=== PATIENT | female | born 1995 | race Caucasian/White ===

== ENCOUNTER 2018-04-12 16:39 | Outpatient (CLI) | payer MEDICAID ==
[2018-04-12 17:29] LABS: ADD UMIC YES; UR ASCORBIC ACID NEGATIVE (NEGATIVE); UR BILIRUBIN (Dip) NEGATIVE (NEGATIVE); UR BLOOD (Dip) NEGATIVE (NEGATIVE); UR CLARITY SLIGHTLY CLOUDY (CLEAR); UR COLOR YELLOW (YELLOW); UR GLUCOSE (Dip) NEGATIVE (NEGATIVE); UR KETONES (Dip) TRACE mg/dL (NEGATIVE); UR LEUKOCYTE ESTERASE (Dip) 2+ Leu/ul (NEGATIVE); UR MUCUS FEW /HPF (NONE SEEN); UR NITRITE (Dip) NEGATIVE (NEGATIVE); UR RBC 3 /HPF (0-5); UR SPECIFIC GRAVITY (Dip) 1.031 (1.003-1.030); UR SQUAMOUS EPITHELIAL CELL FEW /HPF (FEW); UR TOTAL PROTEIN (Dip) 1+ mg/dl (NEGATIVE); UR UROBILINOGEN (Dip) NEGATIVE (NEGATIVE); UR WBC 6 /HPF (0-5)
== END 2018-04-12 18:20 | disposition home or self-care (01) ==
LOC: OBT 16:39 → L-D 16:39 → OBT 18:20
DX: O26.892 Other specified pregnancy related conditions, second trimester (principal); Z3A.27 27 weeks gestation of pregnancy; R10.2 Pelvic and perineal pain
CPT/HCPCS: 76815; 76817; 76818; 81001

== ENCOUNTER 2018-06-15 23:08 | Outpatient (CLI) | payer OTHER, MEDICAID | END 2018-06-16 01:39 | disposition home or self-care (01) | LOC: OBT 23:08 → L-D 23:13 | DX: O26.893 Other specified pregnancy related conditions, third trimester (principal); R06.02 Shortness of breath; R07.9 Chest pain, unspecified; O62.9 Abnormality of forces of labor, unspecified; Z3A.36 36 weeks gestation of pregnancy | CPT/HCPCS: 76818 ==

== ENCOUNTER 2018-06-16 01:47 | Emergency (ER) | payer OTHER | END 2018-06-16 05:13 | disposition home or self-care (01) | LOC: FTE 01:47 | DX: O99.613 Diseases of the digestive system complicating pregnancy, third trimester (principal); K21.9 Gastro-esophageal reflux disease without esophagitis; Z3A.36 36 weeks gestation of pregnancy | CPT/HCPCS: 93005; 99283-25 ==

== ENCOUNTER 2018-07-05 10:23 | Outpatient (CLI) | payer OTHER | END 2018-07-05 13:05 | disposition home or self-care (01) | LOC: OBT 10:23 → L-D 10:23 → OBT 13:05 | DX: O28.9 Unspecified abnormal findings on antenatal screening of mother (principal); O99.213 Obesity complicating pregnancy, third trimester; E66.01 Morbid (severe) obesity due to excess calories; Z3A.39 39 weeks gestation of pregnancy | CPT/HCPCS: 76815; 76818 ==

== ENCOUNTER 2018-07-07 10:51 | Inpatient (IN) | payer OTHER ==
[2018-07-07 12:27] LABS: ADD UMIC YES; UR ASCORBIC ACID 20 mg/dL (NEGATIVE); UR BACTERIA FEW /HPF (NONE SEEN); UR BILIRUBIN (Dip) NEGATIVE (NEGATIVE); UR BLOOD (Dip) NEGATIVE (NEGATIVE); UR CLARITY SLIGHTLY CLOUDY (CLEAR); UR COLOR YELLOW (YELLOW); UR GLUCOSE (Dip) NEGATIVE (NEGATIVE); UR KETONES (Dip) NEGATIVE (NEGATIVE); UR LEUKOCYTE ESTERASE (Dip) 3+ Leu/ul (NEGATIVE); UR NITRITE (Dip) NEGATIVE (NEGATIVE); UR RBC 1 /HPF (0-5); UR SPECIFIC GRAVITY (Dip) 1.017 (1.003-1.030); UR SQUAMOUS EPITHELIAL CELL FEW /HPF (FEW); UR TOTAL PROTEIN (Dip) NEGATIVE (NEGATIVE); UR UROBILINOGEN (Dip) NEGATIVE (NEGATIVE); UR WBC 6 /HPF (0-5)
[2018-07-07 12:36] LABS: ADD MAN DIFF? NO
[2018-07-07 12:38] LABS: WHITE BLOOD COUNT 7.8 10^3/ul (4.8-10.8)
[2018-07-07 12:38] LABS: BASOPHILS % 0.3 % (0.0-2.0); EOSINOPHILS # 0.1 10^3/ul (0.0-0.5); EOSINOPHILS % 1.8 % (0.0-7.0); HEMATOCRIT 34.6 % (37.0-47.0); HEMOGLOBIN 11.2 g/dl (12.0-16.0); LYMPHOCYTES # 2.5 10^3/ul (0.8-2.9); LYMPHOCYTES % 31.6 % (15.0-51.0); MEAN CORPUSCULAR HEMOGLOBIN 27.6 pg (29.0-33.0); MEAN CORPUSCULAR HGB CONC 32.4 g/dl (32.0-37.0); MEAN CORPUSCULAR VOLUME 85.2 fl (82.0-101.0); MEAN PLATELET VOLUME 10.1 fl (7.4-10.4); MONOCYTE # 0.5 10^3/ul (0.3-0.9); MONOCYTES % 6.6 % (0.0-11.0); NEUTROPHIL # 4.6 10^3/ul (1.6-7.5); NEUTROPHILS % 59.1 % (39.0-77.0); PLATELET COUNT 215 10^3/UL (140-415); RED BLOOD COUNT 4.06 10^6/ul (4.20-5.40); RED CELL DISTRIBUTION WIDTH 14.9 % (11.5-14.5)
[2018-07-07 12:58] LABS: ALANINE AMINOTRANSFERASE 17 IU/L (13-69); ALBUMIN 3.2 g/dl (3.3-4.9); ALBUMIN/GLOBULIN RATIO 1.03; ALKALINE PHOSPHATASE 163 IU/L (42-121); ANION GAP 7 (5-13); ASPARTATE AMINO TRANSFERASE 23 IU/L (15-46); BLOOD UREA NITROGEN 8 mg/dl (7-20); CALCIUM 8.9 mg/dl (8.4-10.2); CARBON DIOXIDE 21 mmol/L (21-31); CHLORIDE 110 mmol/L (97-110); CREATININE 0.48 mg/dl (0.44-1.00); Estimated GFR > 60 mL/min (>60); GLUCOSE 85 mg/dl (70-220); SODIUM 138 mmol/L (135-144); TOTAL PROTEIN 6.3 g/dl (6.1-8.1); URIC ACID 4.8 mg/dl (3.1-7.9)
[2018-07-07 13:03] LABS: INR 0.98; PARTIAL THROMBOPLASTIN TIME 24.5 Sec (23.0-35.0); PROTIME 13.1 Sec (11.9-14.9)
[2018-07-07] MEDS ORDERED: METHYLERGONOVINE 0.2 MG INJ IM (14:00)
[2018-07-07] MEDS ORDERED: MISOPROSTOL 200 MCG TAB PR (14:00)
[2018-07-07] MEDS ORDERED: BUTORPHANOL 2 MG INJ IV (14:00)
[2018-07-07] MEDS ORDERED: OXYTOCIN 30 UNITS/LR 500 ML IV ×2 (14:00)
[2018-07-07] MEDS ORDERED: CARBOPROST 250 MCG INJ IM (14:00)
[2018-07-07] MEDS: LACTATED RINGER'S 1,000 ML IV ×2 (16:36→20:42)
[2018-07-07] MEDS: MISOPROSTOL 50 MCG CAPSULE PO (17:46)
[2018-07-07 20:43] LABS: RAPID PLASMA REAGIN NONREACTIVE (NR)
[2018-07-07 23:02] LABS: HEPATITIS B SURFACE ANTIGEN NEGATIVE (NEGATIVE)
[2018-07-08] MEDS: LACTATED RINGER'S 1,000 ML IV ×4 (04:49→23:09)
[2018-07-08] MEDS: OXYTOCIN 30 UNITS/LR 500 ML IV (06:23)
[2018-07-09] MEDS: LACTATED RINGER'S 1,000 ML IV ×5 (04:16→22:40)
[2018-07-09] MEDS ORDERED: DIPHENHYDRAMINE 50 MG INJ IV (13:00)
[2018-07-09] MEDS ORDERED: NALOXONE (0.4 MG/ML) INJ IV (13:00)
[2018-07-09] MEDS ORDERED: HYDROmorphONE 0.5 MG/0.5 ML SYG IV ×2 (13:00)
[2018-07-09] MEDS ORDERED: KETOROLAC 30 MG INJ IV (13:00)
[2018-07-09] MEDS ORDERED: FENTAnyl 2MCG/ML-ROPIV 0.2% 100 ML BAG EPI (13:00)
[2018-07-09] MEDS ORDERED: LIDOCAINE 1.5%/EPI MPF (SDV) 30 ML VIAL (13:17)
[2018-07-09] MEDS: BUTORPHANOL 2 MG INJ IV (15:50)
[2018-07-09] MEDS: ONDANSETRON 4 MG INJ IV (21:08)
[2018-07-09] MEDS: AMPICILLIN 2 GM/NS (PMX) 100 ML IV (23:23)
[2018-07-10] MEDS: BUTORPHANOL 2 MG INJ IV (01:42)
[2018-07-10] MEDS: AMPICILLIN 1 GM/NS (PMX) 50 ML IV ×5 (03:25→20:12)
[2018-07-10] MEDS: ONDANSETRON 4 MG INJ IV (05:13)
[2018-07-10] MEDS: LACTATED RINGER'S 1,000 ML IV ×3 (06:05→13:23)
[2018-07-10] MEDS ORDERED: DIPHENHYDRAMINE 50 MG INJ IV (08:00)
[2018-07-10] MEDS ORDERED: ROPIVACAINE 0.2% 100ML BAG EPI (08:00)
[2018-07-10] MEDS ORDERED: NALOXONE (0.4 MG/ML) INJ IV (08:00)
[2018-07-10] MEDS ORDERED: ONDANSETRON 4 MG INJ IV (08:00)
[2018-07-10] MEDS: DEXTROSE 5%-LR 1,000 ML IV (09:31)
[2018-07-10] MEDS: OXYTOCIN 30 UNITS/LR 500 ML IV (10:06)
[2018-07-10] MEDS: FENTAnyl 2MCG/ML-ROPIV 0.2% 100 ML BAG EPI ×2 (15:14→20:13)
[2018-07-11] MEDS: AMPICILLIN 1 GM/NS (PMX) 50 ML IV (00:06)
[2018-07-11] MEDS: MINERAL OIL LIGHT 10 ML VIAL TOP (00:30)
[2018-07-11] MEDS: FENTAnyl 2MCG/ML-ROPIV 0.2% 100 ML BAG EPI (01:59)
[2018-07-11] MEDS: LIDOCAINE 1% (MPF) 30 ML INJ INJ ×2 (03:12→03:18)
[2018-07-11] MEDS: OXYTOCIN 30 UNITS/LR 500 ML IV ×2 (03:18→05:00)
[2018-07-11] MEDS ORDERED: ZOLPIDEM 5 MG TAB PO (05:00)
[2018-07-11] MEDS ORDERED: OXYTOCIN 30 UNITS/LR 500 ML IV (05:00)
[2018-07-11] MEDS ORDERED: CARBOPROST 250 MCG INJ IM (05:00)
[2018-07-11] MEDS ORDERED: METHYLERGONOVINE 0.2 MG INJ IM (05:00)
[2018-07-11] MEDS ORDERED: MISOPROSTOL 200 MCG TAB PR (05:00)
[2018-07-11] MEDS ORDERED: OXYCODONE/ASPIRIN (4.88/325) TAB PO ×2 (05:00)
[2018-07-11] MEDS: IBUPROFEN 600 MG TAB PO ×3 (06:08→18:06)
[2018-07-11] MEDS: BENZOCAINE 20% 56 ML SPRAY TOP (06:09)
[2018-07-11] MEDS: LANOLIN HPA 1 PKT TOP (06:09)
[2018-07-11] MEDS: WITCH HAZEL/GLYCERIN PAD PR (06:09)
[2018-07-11] MEDS: SENNA/DOCUSATE NA (8.6MG/50MG) TAB PO ×2 (09:07→20:40)
[2018-07-12] MEDS: IBUPROFEN 600 MG TAB PO ×5 (00:06→23:35)
[2018-07-12 08:21] LABS: ADD MAN DIFF? NO
[2018-07-12 08:27] LABS: WHITE BLOOD COUNT 12.6 10^3/ul (4.8-10.8)
[2018-07-12 08:27] LABS: BASOPHILS % 0.3 % (0.0-2.0); EOSINOPHILS # 0.3 10^3/ul (0.0-0.5); EOSINOPHILS % 2.4 % (0.0-7.0); HEMATOCRIT 29.8 % (37.0-47.0); HEMOGLOBIN 9.6 g/dl (12.0-16.0); LYMPHOCYTES # 4.2 10^3/ul (0.8-2.9); LYMPHOCYTES % 33.6 % (15.0-51.0); MEAN CORPUSCULAR HGB CONC 32.2 g/dl (32.0-37.0); MEAN CORPUSCULAR VOLUME 86.9 fl (82.0-101.0); MEAN PLATELET VOLUME 10.2 fl (7.4-10.4); MONOCYTE # 0.7 10^3/ul (0.3-0.9); MONOCYTES % 5.3 % (0.0-11.0); NEUTROPHIL # 7.3 10^3/ul (1.6-7.5); NEUTROPHILS % 57.8 % (39.0-77.0); PLATELET COUNT 210 10^3/UL (140-415); RED BLOOD COUNT 3.43 10^6/ul (4.20-5.40); RED CELL DISTRIBUTION WIDTH 15.5 % (11.5-14.5)
[2018-07-12] MEDS: SENNA/DOCUSATE NA (8.6MG/50MG) TAB PO ×2 (08:52→20:50)
[2018-07-13] MEDS: IBUPROFEN 600 MG TAB PO ×2 (05:30→12:00)
[2018-07-13] MEDS: SENNA/DOCUSATE NA (8.6MG/50MG) TAB PO (09:00)
[2018-07-13] MEDS: DIPHTH/TET/ACEL PERTUSS (ADULT) 0.5 ML VIAL IM* (12:08)
== END 2018-07-13 13:15 | disposition home or self-care (01) | DRG 807 ==
LOC: OBT 10:51 → PP1 07-11 05:30 → L-D 10:51 → OBT 13:40 → L-D 13:40
PROC: 10E0XZZ Delivery of Products of Conception, External Approach (ICD-10-PCS; principal; 2018-07-11)
PROC: 0W8NXZZ Division of Female Perineum, External Approach (ICD-10-PCS; 2018-07-11)
DX: O80 Encounter for full-term uncomplicated delivery (principal); Z37.0 Single live birth; Z3A.39 39 weeks gestation of pregnancy
CPT/HCPCS: 62322; 76818; 80053; 81001; 84560; 85025; 85384; 85610; 85730; 86592; 86850; 86900; 86901; 87086; 87340; 88307; 90715; 99464